=== PATIENT | male | born 1950 | race Caucasian/White ===

== ENCOUNTER 2016-12-11 18:36 | Emergency (ER) | payer OTHER ==
[2016-12-11] MEDS ORDERED: NORVASC PO ONE (19:20)
[2016-12-11] MEDS ORDERED: PRINIVIL PO ONE (19:20)
--- NOTE | 2016-12-11 19:27 | PROVIDER DOCUMENTATION ---
HPI-General Adult - General Source: patient - History of Present Illness -Gen Adult Nature of Presenting Problems: 66 YOWM WITH HX OF HTN. PT STATES HE HAS HAD A HEADACHE X 2 DAYS. PT STATES [facility] AND CHECKED HIS B/P AND IT WAS HIGH, SO HE DECIDED TO COME TO ED TO BE CHECKED. Location of Pain/Injury: reports: head Pain Radiation: reports: no radiation Quality of Pain: reports: aching Severity: reports: moderate Onset/Duration: reports: 2 days ago Timing: reports: still present Context/Activities at Onset: reports: light activity Modifying Factors: improves with: nothing Associated Symptoms: reports: headaches Similar Symptoms Previously?: No Recently seen or treated by another doctor?: No <Jerardo David - Last Filed: 12/11/16 20:37> <Silvio Delaney - Last Filed: 12/11/16 20:45> - General Chief Complaint: B/P Problems Stated Complaint: HIGH BLOOD PRESSURE, Time Seen by Provider: 12/11/16 18:55 Allergies/Adverse Reactions: Patient Allergies Allergy/AdvReac Type Severity Reaction Status Date / Time No Known Allergies Allergy Verified 05/05/16 08:00 Home Medications: Home Medication List Medication Instructions Recorded Confirmed Last Taken Type Hydrochlorothiazide 12.5 mg PO DAILY 09/25/14 12/11/16 12/11/16 History Metformin HCl 500 mg PO BID 09/25/14 12/11/16 12/11/16 History Ranitidine [Zantac] 150 mg PO BID 09/25/14 12/11/16 12/11/16 History SIMVAstatin [Zocor] 40 mg PO QHS 09/25/14 12/11/16 12/11/16 History Benazepril HCl 40 mg PO DAILY 05/05/16 12/11/16 12/11/16 History Amlodipine [Norvasc] 5 mg PO DAILY #30 tablet 12/11/16 Unknown Rx Potassium Chloride E.r. [Micro-K] 10 meq PO QAM #100 capsule 12/11/16 Unknown Rx Review of Systems - Adult - REVIEW OF SYSTEMS - ADULT Constitutional: denies: chills, fever Eyes: reports: no symptoms reported Ears, Nose, Mouth & Throat: reports: no symptoms reported Cardiovascular: denies: chest pain, palpitations, syncope Respiratory: denies: cough, shortness of breath, wheezing Gastrointestinal: denies: abdominal pain, diarrhea, nausea, vomiting Genitourinary: reports: no symptoms reported Musculoskeletal: denies: back pain, neck pain Integumentary: reports: no symptoms reported Neurological: reports: headache/migraines. denies: dizziness/vertigo, syncope Psychiatric: reports: no symptoms reported Endocrine: reports: no symptoms reported Hematologic/Lymphatic: reports: no symptoms reported Allergic/Immunologic: reports: no symptoms reported All Other Systems: Reviewed and Negative <FrankieJerardo - Last Filed: 12/11/16 20:37> Past History - Adult - PAST MEDICAL HISTORY-ADULT Review of Records: reports: Nursing Assessment Review, Medications Reviewed Cardiovascular: reports: HTN Gastrointestinal: reports: GERD Endocrine/Immune: reports: Diabetes - IMMUNIZATION STATUS Childhood Immunizations: See Nurse Assessment Flu Vaccine: See Nurse Assessment - FAMILY HISTORY Family History: reviewed, not pertinent - SOCIAL HISTORY Living Situation: family <Jerardo David Last Filed: 12/11/16 20:37> Physical Exam-General - CONSTITUTIONAL General Appearance: alert, mild distress - EYES Eyes: PERRL/EOMI, pink conjunctivae - HEAD, EARS, NOSE, MOUTH & THROAT HENMT: normocephalic/atraumatic, moist mucous membranes - NECK Neck: non-tender, full range of motion, supple - RESPIRATORY Respiratory: chest non-tender, lungs clear, normal breath sounds - CARDIOVASCULAR Cardiovascular: normal peripheral pulses, tachycardia - GASTROINTESTINAL (ABDOMEN) Abdominal Exam: normal bowel sounds, non tender, soft - LYMPHATIC Lymphatic: no adenopathy - MUSCULOSKELETAL Back Exam: normal inspection, no CVA tenderness, no vertebral tenderness Extremity: normal range of motion, non-tender - SKIN Integumentary: normal color, normal turgor, warm/dry - NEUROLOGIC Neurologic: grossly normal - PSYCHIATRIC Psych/Mental Status: oriented x 3 <FrankieJerardo Last Filed: 12/11/16 20:37> Departure - Departure Time of Disposition Order: 20:37 Certified Medical Emergency: Emergent <FrankieJerardo - Last Filed: 12/11/16 20:37> - Departure Time of Disposition Order: 20:44 Certified Medical Emergency: Emergent <Silvio Delaney - Last Filed: 12/11/16 20:45> - Departure DIAGNOSIS: Poorly-controlled hypertension, Hyponatremia Disposition: HOME 01 Condition: Fair Additional Instructions: DRINK LESS WATER YOU CAN HAVE NORMAL AMOUNT OF SALT IN DIET PURCHASE HOME BLOOD PRESSURE MACHINE OR VISIT NEARBY PHARMACY (same one every time) TO CHECK BLOOD PRESSURE DAILY. WRITE DOWN ON SHEET OF PAPER AND CARRY TO DOCTOR'S VISIT SO HE/SHE CAN SEE TREND FOLLOW UP WITH FAMILY DOCTOR THIS WEEK TO HAVE POTASSIUM RECHECKED. ED Follow Up Instructions: You have been treated by a care provider in the Emergency Department. These instructions are being provided to you so you can have an understanding of how to care for yourself upon discharge. Upon discharge from the Emergency Department, you are responsible for making arrangements for follow-up care by a physician of your choice. Take all prescribed medications as directed. Return to the Emergency Department immediately for any new or worsening symptoms. You may call the Physician Referral phone number at [phone] to obtain a list of Physicians who are taking new patients. Prescriptions: Potassium Chloride E.r. [Micro-K] 10 meq PO QAM #100 capsule Amlodipine [Norvasc] 5 mg PO DAILY #30 tablet Referrals: Lela Newman MD [Primary Care Provider] - Forms: Return to School/Parent Work Instructions: Hyponatremia, Hypertension, [id number], Amlodipine tablets, Potassium phosphate; Sodium Phosphate oral tablet Attestation - Scribe Verification/Attestation Scribe:: Jerardo David Acting as Scribe for:: Silvio Delaney Scribe documention review:: This chart was documented by a scribe and accurately reflects the service the provider performed and the decisions made by the provider. <Jerardo David - Last Filed: 12/11/16 20:37> Physician Attestation
[2016-12-11 20:07] LABS: AGAP 12; ALBUMIN 4.1 g/dL (3.5-5.0); ALKALINE PHOSPHATASE 85 U/L (32-122); BUN 17 mg/dL (8-22); CALCIUM 8.9 mg/dL (8.8-10.2); CHLORIDE 94 mmol/L (98-107); COSMO 260; GOT 31 U/L (10-34); GPT 24 U/L (10-44); POTASSIUM 3.4 mmol/L (3.5-5.1); SODIUM 129 mmol/L (136-145); TCO2 24 mmol/L (25-35); TOTAL PROTEIN 6.9 g/dL (6.3-8.3)
[2016-12-11 21:04] VITALS: BP 158/101
== END 2016-12-11 21:12 | disposition home or self-care (01) ==
LOC: P.ED 18:36
DX: I10 Essential (primary) hypertension (principal); E87.1 Hypo-osmolality and hyponatremia; R51 Headache; K21.9 Gastro-esophageal reflux disease without esophagitis; E11.9 Type 2 diabetes mellitus without complications; R00.0 Tachycardia, unspecified; Z79.899 Other long term (current) drug therapy
CPT/HCPCS: 80053; 99283